=== PATIENT | female | born 1940 | race Caucasian/White ===

== ENCOUNTER 2022-11-18 23:01 | Emergency (ER) | payer MEDICARE, OTHER ==
[2022-11-19] MEDS ORDERED: predniSONE 20 MG Tab PO ONE (00:39)
[2022-11-19] MEDS ORDERED: Acetaminophen/HYDROcodone 325-10 MG Tab PO ONE (00:39)
== END 2022-11-19 00:57 | disposition home or self-care (01) ==
LOC: JD.ED 23:01
DX: M47.812 Spondylosis without myelopathy or radiculopathy, cervical region (principal); I10 Essential (primary) hypertension; E11.9 Type 2 diabetes mellitus without complications
CPT/HCPCS: 72125; 99283; A9270; J7512

== ENCOUNTER 2024-07-14 19:24 | Emergency (ER) | payer MEDICARE, OTHER ==
[2024-07-14] MEDS ORDERED: Sodium Chloride 0.9% 1,000 ML IV ONE (19:47)
[2024-07-14 20:11] LABS: BASOPHILS PERCENT AUTO 0.3 % (0.0-1.0); EOSINOPHILS ABSOLUTE AUTO 0.1 K/mm3 (0.0-0.4); EOSINOPHILS PERCENT AUTO 1.3 % (0.0-6.0); HEMATOCRIT 43.8 % (37.0-47.0); HEMOGLOBIN 15.1 gm/dl (12.0-16.0); IMMATURE GRAN ABSOLUTE AUTO 0.05 K/mm3 (0.00-0.05); IMMATURE GRAN PERCENT AUTO 0.6 % (0.0-0.4); LYMPHOCYTES ABSOLUTE AUTO 1.8 K/mm3 (1.0-4.8); LYMPHOCYTES PERCENT AUTO 20.2 % (24.0-44.0); MEAN CORPUSCULAR HEMOGLOBIN 32.1 pg (28.0-32.0); MEAN CORPUSCULAR HGB CONC 34.5 g/dl (32.0-36.0); MEAN CORPUSCULAR VOLUME 93.2 fl (83.0-99.0); MEAN PLATELET VOLUME 10.6 fl (9.4-12.3); MONOCYTES ABSOLUTE AUTO 0.6 K/mm3 (0.0-0.8); MONOCYTES PERCENT AUTO 7.2 % (0.0-8.0); NEUTROPHILS ABSOLUTE AUTO 6.3 K/mm3 (1.8-7.7); NEUTROPHILS PERCENT AUTO 70.4 % (41.0-71.0); PLATELET COUNT,PLT 153 K/mm3 (150-400)
[2024-07-14 20:28] LABS: INR 1.01; PROTHROMBIN TIME 10.7 SECONDS (9.7-12.0)
[2024-07-14 20:30] LABS: PTT,PARTIAL THROMBOPLSTIN TIME 23.3 SECONDS (21.7-31.4)
[2024-07-14 20:36] LABS: LACTIC ACID 1.2 mmol/L (0.4-2.0)
[2024-07-14 20:49] LABS: ALBUMIN 3.3 g/dl (3.4-5.0); BILIRUBIN TOTAL 1.1 mg/dL (0.2-1.0); CALCIUM 10.4 mg/dL (8.5-10.1); EST CRCL DRUG DOSING (CG) 37.01 mL/min; PROTEIN TOTAL,TP 6.5 g/dl (6.4-8.2)
[2024-07-14] MEDS: Alum Hydrox/Mag Hydrox/Simeth 30 ML, Lidocaine 2% 15 ML PO ONE (21:08)
[2024-07-14] MEDS: Famotidine 20 MG/2 ML SDV IVPUSH ONE (21:09)
== END 2024-07-14 22:05 | disposition home or self-care (01) ==
LOC: JD.ED 19:24
DX: K21.9 Gastro-esophageal reflux disease without esophagitis (principal); I10 Essential (primary) hypertension; E11.9 Type 2 diabetes mellitus without complications; E78.00 Pure hypercholesterolemia, unspecified; Z90.49 Acquired absence of other specified parts of digestive tract; Z96.659 Presence of unspecified artificial knee joint; Z88.2 Allergy status to sulfonamides; Z88.5 Allergy status to narcotic agent; Z88.1 Allergy status to other antibiotic agents; Z88.8 Allergy status to other drugs, medicaments and biological substances; Z79.82 Long term (current) use of aspirin; Z79.84 Long term (current) use of oral hypoglycemic drugs; Z79.899 Other long term (current) drug therapy
CPT/HCPCS: 36415; 71045; 80053; 82947; 83605; 83880; 84484; 85025; 85610; 85730; 93005; 96374; 99284; A9270; 93010

== ENCOUNTER 2024-07-21 11:54 | Emergency (ER) | payer MEDICARE, OTHER ==
[2024-07-21] MEDS: Diphtheria,Pertussis(Acell),Tetanus Vaccine 0.5 ML Syringe IM ONE (13:22)
[2024-07-21] MEDS: Lidocaine 1% 10 ML MDV INJECT ONE (14:00)
[2024-07-21] MEDS: Acetaminophen 325 MG Tab PO ONE (15:07)
== END 2024-07-21 15:05 | disposition home or self-care (01) ==
LOC: JD.ED 11:54
DX: S01.81XA Laceration without foreign body of other part of head, initial encounter (principal); I10 Essential (primary) hypertension; E78.00 Pure hypercholesterolemia, unspecified; E11.9 Type 2 diabetes mellitus without complications; Z86.16 Personal history of COVID-19; Z90.49 Acquired absence of other specified parts of digestive tract; Z88.2 Allergy status to sulfonamides; Z88.5 Allergy status to narcotic agent; Z88.8 Allergy status to other drugs, medicaments and biological substances; Z79.82 Long term (current) use of aspirin; Z79.84 Long term (current) use of oral hypoglycemic drugs; Z79.899 Other long term (current) drug therapy; W22.8XXA Striking against or struck by other objects, initial encounter; Z23 Encounter for immunization
CPT/HCPCS: 12011; 70450; 70450-26; 70486; 70486-26; 90471; 90715; 99282; 99284-25; A9270-GY; J3490

== ENCOUNTER 2024-08-23 14:46 | Emergency (ER) | payer MEDICARE, OTHER ==
[2024-08-23 16:23] LABS: BASOPHILS PERCENT AUTO 0.5 % (0.0-1.0); EOSINOPHILS ABSOLUTE AUTO 0.1 K/mm3 (0.0-0.4); EOSINOPHILS PERCENT AUTO 1.4 % (0.0-6.0); HEMATOCRIT 41.7 % (37.0-47.0); IMMATURE GRAN ABSOLUTE AUTO 0.02 K/mm3 (0.00-0.05); IMMATURE GRAN PERCENT AUTO 0.2 % (0.0-0.4); LYMPHOCYTES ABSOLUTE AUTO 1.6 K/mm3 (1.0-4.8); MEAN CORPUSCULAR HGB CONC 33.6 g/dl (32.0-36.0); MEAN CORPUSCULAR VOLUME 95.2 fl (83.0-99.0); MONOCYTES ABSOLUTE AUTO 0.5 K/mm3 (0.0-0.8); MONOCYTES PERCENT AUTO 6.1 % (0.0-8.0); NEUTROPHILS PERCENT AUTO 72.8 % (41.0-71.0); PLATELET COUNT,PLT 149 K/mm3 (150-400); RED BLOOD CELL COUNT 4.38 M/mm3 (4.10-5.30); WHITE BLOOD CELL COUNT,WBC 8.31 K/mm3 (3.9-11.3)
[2024-08-23 16:42] LABS: ALBUMIN 3.3 g/dl (3.4-5.0); ANION GAP 12.7 (5-15); CALCIUM 9.7 mg/dL (8.5-10.1); EST CRCL DRUG DOSING (CG) 37.01 mL/min; POTASSIUM,K 3.7 mEq/L (3.5-5.1); PROTEIN TOTAL,TP 6.7 g/dl (6.4-8.2)
[2024-08-23] MEDS: Famotidine 20 MG Tab PO ONE (17:03)
[2024-08-23] MEDS: Alum Hydrox/Mag Hydrox/Simeth 30 ML, Lidocaine 2% 15 ML PO ONE (17:04)
== END 2024-08-23 18:42 | disposition home or self-care (01) ==
LOC: JD.ED 14:46
DX: K59.00 Constipation, unspecified (principal); I10 Essential (primary) hypertension; E78.00 Pure hypercholesterolemia, unspecified; E11.9 Type 2 diabetes mellitus without complications; Z86.16 Personal history of COVID-19; Z90.49 Acquired absence of other specified parts of digestive tract; Z79.82 Long term (current) use of aspirin; Z79.899 Other long term (current) drug therapy; Z79.84 Long term (current) use of oral hypoglycemic drugs; Z88.8 Allergy status to other drugs, medicaments and biological substances; Z88.5 Allergy status to narcotic agent; Z88.1 Allergy status to other antibiotic agents; Z88.2 Allergy status to sulfonamides
CPT/HCPCS: 36415; 74018; 80053; 85025; 99283; A9270

== ENCOUNTER 2024-09-25 07:00 | Day surgery (SDC) | payer MEDICARE, OTHER ==
[~2024-09-25 07:00] MED LIST: Sodium Chloride 0.9% 10 ML Syringe FLUSH PRN; Sodium Chloride 0.9% 10 ML Syringe FLUSH SCH
[2024-09-25] MEDS ORDERED: Dexamethasone 4 MG/ML 5 ML MDV ONE (07:03)
[2024-09-25] MEDS ORDERED: Ondansetron 4 MG/2 ML SDV ONE (07:03)
[2024-09-25] MEDS ORDERED: propofoL 500 MG/50 ML 50 ML ONE ×2 (07:03→09:13)
[2024-09-25] MEDS ORDERED: Lidocaine 2% 5 ML SDV ONE (07:03)
[2024-09-25] MEDS ORDERED: EPINEPHrine 1 MG/ML SDV ONE (07:09)
[2024-09-25] MEDS ORDERED: Ropivacaine 0.5% 5 MG/ML 30 ML SDV ONE (07:13)
[2024-09-25] MEDS: Lactated Ringers 1,000 ML IV SCH (07:20)
[2024-09-25] MEDS ORDERED: Ondansetron 4 MG/2 ML SDV IVPUSH PRN (07:26)
[2024-09-25] MEDS ORDERED: fentaNYL 100 MCG/2 ML SDV IVPUSH PRN (07:26)
[2024-09-25] MEDS ORDERED: HYDROmorphone 0.5 MG/0.5 ML Syringe IVPUSH PRN (07:26)
[2024-09-25 08:16] LABS: INR 1.02; PROTHROMBIN TIME 10.8 SECONDS (9.7-12.0)
[2024-09-25 08:17] LABS: PTT,PARTIAL THROMBOPLSTIN TIME 25.1 SECONDS (21.7-31.4)
[2024-09-25] MEDS ORDERED: Lactated Ringers 1,000 ML ONE (08:55)
[2024-09-25] MEDS ORDERED: ceFAZolin 2 GM Vial ONE (09:07)
[2024-09-25] MEDS: Morphine 8 MG, EPINEPHrine 0.3 MG, Cefuroxime 750 MG, Ketorolac 30 MG, Sodium Chloride ... PRN (10:00)
[2024-09-25] MEDS: Tranexamic Acid 1,000 MG/10 ML Vial ONE (10:04)
[2024-09-25] MEDS: VANCOmycin 1 GM SDV ONE (10:04)
[2024-09-25] MEDS: Acetaminophen/HYDROcodone 325-5 MG Tab PO PRN (13:44)
== END 2024-09-25 15:40 | disposition home or self-care (01) ==
LOC: JD.SDS 07:00
PROVIDERS: ATTEND Orthopaedic Surgery
DX: M17.11 Unilateral primary osteoarthritis, right knee (principal); E11.9 Type 2 diabetes mellitus without complications; K21.9 Gastro-esophageal reflux disease without esophagitis; I10 Essential (primary) hypertension; E78.00 Pure hypercholesterolemia, unspecified; Z79.84 Long term (current) use of oral hypoglycemic drugs; Z79.82 Long term (current) use of aspirin; Z79.899 Other long term (current) drug therapy; Z88.2 Allergy status to sulfonamides; Z88.5 Allergy status to narcotic agent; Z88.8 Allergy status to other drugs, medicaments and biological substances
CPT/HCPCS: 01402; 36415; 64447; 73560-26-RT; 73560-RT; 85610; 85730; 97116-GP; 97162-GP; 99100; A9270-GY; C1713; C1776; J0171; J0690; J0697; J1100; J1885; J2003; J2272; J2405; J2704; J2795; J3490; J7120; U0002